=== PATIENT | female | born 2000 | race American Indian/Alaskan Native ===

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

== ENCOUNTER 2021-11-14 11:44 | Emergency (ER) | payer OTHER ==
[2021-11-14 12:24] VITALS: BP 123/88; PULSE 83
--- NOTE | 2021-11-14 12:28 | EDM.PDOC ---
ED HPI GENERAL MEDICAL PROBLEM - General Chief Complaint: Respiratory Problem Stated Complaint: POSSIBLE FLU / NO TEMP Time Seen by Provider: 11/14/21 13:05 Source of Information: Reports: Patient History Limitations: Reports: No Limitations - History of Present Illness INITIAL COMMENTS - FREE TEXT/NARRATIVE: This 21 yo female reports to the ED with a 2 day history of chills, cough, fever (home temp 103), headache, body aches. She is not vaccinated for covid or influenza. Fever responded to tylenol. Patient was tested for covid at [facility] on 11/13/21 and was negative. 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 ED EXAM, GENERAL - Physical Exam Exam: See Below Exam Limited By: No Limitations General Appearance: Alert, WD/WN, No Apparent Distress Eye Exam: Bilateral Eye: EOMI, Normal Inspection, PERRL Ears: Normal External Exam, Normal Canal, Hearing Grossly Normal, Normal TMs Throat/Mouth: Other (posterior pharyngeal erythema) Head: Atraumatic, Normocephalic Neck: Normal Inspection, Supple, Non-Tender, Full Range of Motion Respiratory/Chest: No Respiratory Distress, Lungs Clear, Normal Breath Sounds, No Accessory Muscle Use, Chest Non-Tender Cardiovascular: Normal Peripheral Pulses, Regular Rate, Rhythm, No Edema, No Gallop, No JVD, No Murmur, No Rub (Female) Exam: Deferred Rectal (Female) Exam: Deferred Extremities: Normal Inspection, Normal Range of Motion, Non-Tender, Normal Capillary Refill, No Pedal Edema Neurological: Alert, Oriented, CN II-XII Intact, Normal Cognition, Normal Gait, Normal Reflexes, No Motor/Sensory Deficits Psychiatric: Normal Affect, Normal Mood Skin Exam: Warm, Dry, Intact, Normal Color, No Rash Lymphatic: No Adenopathy Course - Vital Signs Last Recorded V/S: Last Vital Signs Temp 97.5 F 11/14/21 12:19 Pulse 83 11/14/21 12:19 Resp 20 11/14/21 12:19 BP 123/88 11/14/21 12:19 Pulse Ox 98 11/14/21 12:19 - Orders/Labs/Meds Labs: Laboratory Tests 11/14/21 Range/Units 11:55 Influenza Type A RNA Positive H (NEGATIVE) Influenza Type B RNA Negative (NEGATIVE) SARS-CoV-2 RNA (SILAS) Negative (NEGATIVE) Departure - Departure Time of Disposition: 13:20 Disposition: Home, Self-Care 01 Condition: Fair Clinical Impression: Influenza A - Discharge Information *PRESCRIPTION DRUG MONITORING PROGRAM REVIEWED*: Not Applicable *COPY OF PRESCRIPTION DRUG MONITORING REPORT IN PATIENT MIGDALIA: Not Applicable Instructions: Influenza, Adult, [id number] Forms: ED Department Discharge Care Plan Goals: The patient was advised of the examination and lab results during the visit. The patient was discharged with a script for Tamiflu (75 mg) to take 1 by mouth 2 times per day for 5 days. The patient may take Tylenol or ibuprofen as directed for temporary symptom relief. The patient was encouraged to stick to a BRAT diet (bananas, rice, applesauce and toast) with small frequent sips of fluid. If the patient has any additional symptoms or concerns, the patient should follow-up with her primary care facility or return to the emergency department. Sepsis Event Note (ED) - Evaluation Sepsis Screening Result: No Definite Risk - Focused Exam Vital Signs: Vital Signs Temp Pulse Resp BP Pulse Ox 11/14/21 12:19 97.5 F 83 20 123/88 98
[2021-11-14 12:42] LABS: CORONAVIRUS COVID-19 NAA NEGATIVE (NEGATIVE)
== END 2021-11-14 13:31 | disposition home or self-care (01) ==
LOC: DL.ED 11:44
DX: J10.1 Influenza due to other identified influenza virus with other respiratory manifestations (principal); Z91.09 Other allergy status, other than to drugs and biological substances; Z79.82 Long term (current) use of aspirin; Z20.822 Contact with and (suspected) exposure to COVID-19
CPT/HCPCS: 0240U; 99283

== ENCOUNTER 2023-10-10 00:19 | Emergency (ER) | payer OTHER ==
[2023-10-10] MEDS ORDERED: Sodium Chloride 0.9% 10 ML Syringe FLUSH PRN (00:26)
[2023-10-10] MEDS ORDERED: fentaNYL 100 MCG/2 ML SDV IVPUSH ONE (00:29)
[2023-10-10 00:30] VITALS: BP 150/82
[2023-10-10 00:44] LABS: BASOPHILS PERCENT AUTO 0.1 % (0.0-1.0); EOSINOPHILS PERCENT AUTO 1.4 % (1.0-3.0); HEMATOCRIT 39.2 % (37.0-47.0); HEMOGLOBIN 12.5 g/dL (12.0-16.0); LYMPHOCYTES PERCENT AUTO 19.3 % (20.5-50.1); MEAN CORPUSCULAR HGB CONC 31.9 g/dL (33.0-35.0); MEAN CORPUSCULAR VOLUME 75.4 fL (80-100); MONOCYTES PERCENT AUTO 7.6 % (2-8); NEUTROPHILS PERCENT AUTO 71.6 % (42.2-75.2); PLATELET COUNT,PLT 486 10^3/uL (150-450); WHITE BLOOD CELL COUNT,WBC 21.7 10^3/uL (5.0-10.0)
[2023-10-10] MEDS ORDERED: Sodium Chloride 0.9% 1,000 ML IV ONE ×2 (00:49→01:47)
[2023-10-10 01:02] LABS: PTT,PARTIAL THROMBOPLSTIN TIME 24.6 SEC (22.0-34.0)
[2023-10-10 01:06] LABS: LACTIC ACID 1.4 mmol/L (0.4-2.0)
[2023-10-10 01:11] LABS: A/G RATIO 0.9; ALANINE AMINOTRANSFERASE,ALT 58 U/L (14-59); ALBUMIN 3.7 g/dL (3.4-5.0); ALKALINE PHOSPHATASE 90 U/L (46-116); ANION GAP 14.1 mEq/L (7-13); ASPARTATE AMNIOTRANSFERASE,AST 49 U/L (15-37); BILIRUBIN TOTAL 0.4 mg/dL (0.2-1.0); BLOOD UREA NITROGEN,BUN 12 mg/dL (7-18); BUN/CREATININE RATIO 16.9 (No establ ref range); C-REACTIVE PROTEIN 1.41 ng/dL (<=0.50); CALCIUM 8.9 mg/dL (8.5-10.1); CARBON DIOXIDE,CO2 23 mmol/L (21-32); CHLORIDE,CL 105 mmol/L (98-107); CREATININE 0.71 mg/dL (0.55-1.02); EST CRCL DRUG DOSING (CG) 129.89 mL/min; GLUCOSE RANDOM 135 mg/dL (70-99); POTASSIUM,K 3.1 mmol/L (3.5-5.1); PROTEIN TOTAL,TP 7.8 g/dL (6.4-8.2); SODIUM,NA 139 mmol/L (136-145)
[2023-10-10 01:16] VITALS: PULSE 74
[2023-10-10 01:26] LABS: ESTIMATED GFR 123 mL/min (>=60); LIPASE > 250 U/L (16-77)
[2023-10-10 01:29] LABS: INR 0.9 (0.9-1.2); PROTHROMBIN TIME 9.2 SEC (9.0-12.0)
[2023-10-10 01:38] LABS: APPEARANCE,URINE SLIGHTLY CLOUDY (CLEAR); BILIRUBIN,URINE NEGATIVE (NEGATIVE); COLOR,URINE DARK YELLOW (YELLOW); GLUCOSE,URINE NEGATIVE (NEGATIVE); KETONES,URINE NEGATIVE (NEGATIVE); LEUKOCYTE ESTERASE,URINE NEGATIVE (NEGATIVE); NITRITE,URINE NEGATIVE (NEGATIVE); OCCULT BLOOD,URINE LARGE (NEGATIVE); PROTEIN,URINE 30 (NEGATIVE); UROBILINOGEN,URINE 0.2 mg/dL (0.2-1.0)
[2023-10-10 01:46] LABS: AMPHETAMINES,URINE NEGATIVE (NEGATIVE); BARBITURATES,URINE NEGATIVE (NEGATIVE); BENZODIAZEPINE,URINE NEGATIVE (NEGATIVE); MDMA (ECSTASY), URINE NEGATIVE (NEGATIVE); METHADONE,URINE NEGATIVE (NEGATIVE); METHAMPHETAMINES,URINE NEGATIVE (NEGATIVE); OPIATES,URINE NEGATIVE (NEGATIVE); OXYCODONE,URINE NEGATIVE (NEGATIVE); PHENCYCLIDINE,URINE NEGATIVE (NEGATIVE); TCA,URINE NEGATIVE (NEGATIVE)
[2023-10-10] MEDS ORDERED: Iopamidol 612 MG/ML 100 ML Bottle IVPUSH ONE (01:46)
[2023-10-10 01:48] LABS: BACTERIA,URINE FEW /HPF (0-FEW/HPF); EPITHELIAL CELLS,URINE FEW /HPF (NOT SEEN); RBC,URINE >100 /HPF (0-5); WBC,URINE 0-5 /HPF (0-5/HPF)
[2023-10-10 01:51] LABS: AMYLASE > 3250 U/L (25-115)
[2023-10-10] MEDS ORDERED: Potassium Chloride 20 MEQ in Premix Bag 1 BAG IV ONE ×2 (02:09→03:14)
[2023-10-10] MEDS ORDERED: HYDROmorphone 1 MG/ML Syringe IVPUSH ONE (02:29)
[2023-10-10] MEDS ORDERED: Lactated Ringers 1,000 ML IV SCH (03:15)
[2023-10-10 03:38] LABS: CHOLESTEROL HDL 39 mg/dL (40-59); CHOLESTEROL LDL CALCULATED 81 mg/dL (0-100); CHOLESTEROL TOTAL 133 mg/dL (0-199); TRIGLYCERIDES 65 mg/dL (0-149)
== END 2023-10-10 03:47 ==
LOC: DL.ED 00:19
DX: K85.90 Acute pancreatitis without necrosis or infection, unspecified (principal); E87.6 Hypokalemia; Z79.82 Long term (current) use of aspirin; Z79.899 Other long term (current) drug therapy; Z91.048 Other nonmedicinal substance allergy status
CPT/HCPCS: 36415; 71045; 74177; 80053; 80061; 80305-QW; 80307; 81001; 81025; 82150; 83605; 83690; 84145; 84484; 85025; 85610; 85730; 86140; 93005; 93010; 96361; 96365; 96375; 99284; 99285-25; J1170; J3010; J3480; J3490; J7030; J7120; Q9967

== ENCOUNTER 2023-11-05 13:21 | Emergency (ER) | payer OTHER ==
[2023-11-05 13:58] VITALS: BP 134/102; PULSE 99
[2023-11-05] MEDS ORDERED: Sodium Chloride 0.9% 10 ML Syringe FLUSH PRN (14:08)
[2023-11-05] MEDS ORDERED: Acetaminophen 500 MG Tab PO ONE (14:30)
[2023-11-05] MEDS ORDERED: Ketorolac 30 MG/ML SDV IVPUSH ONE (14:30)
[2023-11-05 14:32] LABS: BASOPHILS PERCENT AUTO 0.4 % (0.0-1.0); EOSINOPHILS PERCENT AUTO 3.1 % (1.0-3.0); HEMOGLOBIN 11.2 g/dL (12.0-16.0); LYMPHOCYTES PERCENT AUTO 16.4 % (20.5-50.1); MEAN CORPUSCULAR HGB CONC 31.1 g/dL (33.0-35.0); MEAN CORPUSCULAR VOLUME 77.3 fL (80-100); MONOCYTES PERCENT AUTO 5.7 % (2-8); NEUTROPHILS PERCENT AUTO 74.4 % (42.2-75.2); PLATELET COUNT,PLT 382 10^3/uL (150-450); RED BLOOD CELL COUNT 4.66 10^6/uL (4.2-5.4); WHITE BLOOD CELL COUNT,WBC 8.1 10^3/uL (5.0-10.0)
[2023-11-05 14:33] LABS: BILIRUBIN,URINE SMALL (NEGATIVE); COLOR,URINE YELLOW (YELLOW); GLUCOSE,URINE 500 (NEGATIVE); KETONES,URINE 80 (NEGATIVE); LEUKOCYTE ESTERASE,URINE TRACE (NEGATIVE); NITRITE,URINE NEGATIVE (NEGATIVE); OCCULT BLOOD,URINE SMALL (NEGATIVE); PH,URINE 5.5 (5.0-9.0); PROTEIN,URINE 30 (NEGATIVE); UROBILINOGEN,URINE 0.2 mg/dL (0.2-1.0)
[2023-11-05 14:34] LABS: APPEARANCE,URINE SLIGHTLY CLOUDY (CLEAR)
[2023-11-05 14:44] LABS: METHAMPHETAMINES,URINE NEGATIVE (NEGATIVE)
[2023-11-05 14:45] LABS: AMPHETAMINES,URINE NEGATIVE (NEGATIVE); BARBITURATES,URINE NEGATIVE (NEGATIVE); BENZODIAZEPINE,URINE NEGATIVE (NEGATIVE); MDMA (ECSTASY), URINE NEGATIVE (NEGATIVE); METHADONE,URINE NEGATIVE (NEGATIVE); OPIATES,URINE NEGATIVE (NEGATIVE); OXYCODONE,URINE POSITIVE (NEGATIVE); PHENCYCLIDINE,URINE NEGATIVE (NEGATIVE); TCA,URINE NEGATIVE (NEGATIVE)
[2023-11-05] MEDS ORDERED: Sodium Chloride 0.9% 1,000 ML IV ONE (14:53)
[2023-11-05 14:55] LABS: A/G RATIO 0.9; ALANINE AMINOTRANSFERASE,ALT 28 U/L (14-59); ALBUMIN 3.7 g/dL (3.4-5.0); ALKALINE PHOSPHATASE 85 U/L (46-116); AMYLASE 151 U/L (25-115); ANION GAP 11.8 mEq/L (7-13); ASPARTATE AMNIOTRANSFERASE,AST 13 U/L (15-37); BILIRUBIN TOTAL 0.7 mg/dL (0.2-1.0); BLOOD UREA NITROGEN,BUN 8 mg/dL (7-18); BUN/CREATININE RATIO 11.8 (No establ ref range); CARBON DIOXIDE,CO2 27 mmol/L (21-32); CHLORIDE,CL 99 mmol/L (98-107); CREATININE 0.68 mg/dL (0.55-1.02); EST CRCL DRUG DOSING (CG) 134.47 mL/min; GLUCOSE RANDOM 336 mg/dL (70-99); LIPASE 80 U/L (16-77); POTASSIUM,K 3.8 mmol/L (3.5-5.1); PROTEIN TOTAL,TP 7.7 g/dL (6.4-8.2); SODIUM,NA 134 mmol/L (136-145)
[2023-11-05 14:56] LABS: ESTIMATED GFR 125 mL/min (>=60)
[2023-11-05 14:57] LABS: AMORPHOUS SEDIMENT,URINE FEW /HPF (NOT SEEN); BACTERIA,URINE MODERATE /HPF (0-FEW/HPF); EPITHELIAL CELLS,URINE MODERATE /HPF (NOT SEEN); MUCUS,URINE MODERATE /LPF (NOT SEEN); WBC,URINE SEMI-PACKED /HPF (0-5/HPF)
[2023-11-05 14:59] LABS: LACTIC ACID 1.2 mmol/L (0.4-2.0)
[2023-11-05 15:03] LABS: HCG QUALITATIVE,SERUM NEGATIVE (NEGATIVE)
== END 2023-11-05 16:04 | disposition home or self-care (01) ==
LOC: DL.ED 13:21
DX: N30.01 Acute cystitis with hematuria (principal); E11.9 Type 2 diabetes mellitus without complications; Z91.048 Other nonmedicinal substance allergy status; Z79.82 Long term (current) use of aspirin
CPT/HCPCS: 36415; 74018; 80053; 80305-QW; 81001; 82009; 82150; 83605; 83690; 84703; 85025; 87086; 96361; 96374; 99284; 99284-25; A9270-GY; J1885; J3490; J7030